=== PATIENT | female | born 1965 | race Caucasian/White ===

== ENCOUNTER 2024-05-26 15:48 | Outpatient (REF) | payer OTHER, SELFPAY ==
--- OUTSIDE RECORDS SUMMARY | 2024-05-26 19:24 | XMS_ITS ---
Author Name [facility] Organization Unknown History of Medication Use Medication Directions Dispensed Refills Start Date End Date Stat diclofenac (VOLTAREN) 1 % gel Apply topically 4 (four) times a day. Use dosing card to measure dose. Apply 4 grams to entire affect area. 05/12/2024 05/19/9999 active Problems Problem Status Onset Date Problem Type Date of Resoluti on Source Status post bilateral knee replacements active EncounterDiagnosisAct CCT
== END 2024-05-26 15:49 | disposition home or self-care (01) ==
LOC: HO.SH 15:48
PROVIDERS: Visit Provider Internal Medicine
DX: Z01.10 Encounter for examination of ears and hearing without abnormal findings (principal); H90.3 Sensorineural hearing loss, bilateral
CPT/HCPCS: 92557